=== PATIENT | male | born 1995 | race Hispanic/Latino ===

== ENCOUNTER 2020-04-11 16:37 | Emergency (ER) | payer SELFPAY ==
[2020-04-11] MEDS ORDERED: TETANUS/DIPHTHERIA TOXOID [ADULT] 0.5 ML VIAL IM ONE (17:14)
[2020-04-11] MEDS ORDERED: KETOROLAC TROMETHAMINE 30MG/ML ONE (17:14)
[2020-04-11] MEDS ORDERED: CLINDAMYCIN 600 MG/D5% WATER 50 ML IV ONE (18:28)
[2020-04-11] MEDS ORDERED: DiphenhydrAMINE HCL 50 MG/ML VIAL ONE (18:28)
[2020-04-11] MEDS ORDERED: FAMOTIDINE/PF 20 MG/2 ML VIAL IV ONE (18:29)
== END 2020-04-11 19:15 | disposition home or self-care (01) ==
LOC: EDH 16:37
DX: S91.331A Puncture wound without foreign body, right foot, initial encounter (principal); Z87.891 Personal history of nicotine dependence; X58.XXXA Exposure to other specified factors, initial encounter; Y93.89 Activity, other specified; Y92.89 Other specified places as the place of occurrence of the external cause; Y99.8 Other external cause status
CPT/HCPCS: 73630; 90471; 90714; 96365; 96375; 99284; J1200; J1885; J3490 ×2